=== PATIENT | female | born 1995 ===

== ENCOUNTER 2016-05-24 22:11 | Emergency (ER) | payer SELFPAY ==
[2016-05-24 22:25] VITALS: RESP 16
[2016-05-24] MEDS ORDERED: Lactated Ringer's 1,000 ML IV STA (22:44)
[2016-05-24 22:55] LABS: BASO # 0.1 K/uL (0.0-0.2); BASO % 0.4 % (0.0-2.0); EOS # 0.1 K/uL (0.0-0.7); HEMATOCRIT 38.8 % (34.0-47.0); LYMPH # 3.5 K/uL (1.0-4.3); LYMPH % 24.7 % (20.0-40.0); MEAN CELL VOLUME 83.1 fl (81.0-99.0); MEAN CORPUSCULAR HEMOGLOBIN 26.6 pg (27.0-31.0); MEAN PLATELET VOLUME 7.9 fl (7.2-11.7); MONO # 0.8 K/uL (0.0-0.8); MONO % 5.9 % (0.0-10.0); NEUT # 9.6 K/uL (1.8-7.0); RED CELL DISTRIBUTION WIDTH 13.5 % (11.5-14.5); WHITE BLOOD COUNT 14.2 K/uL (4.8-10.8)
[2016-05-24 23:15] LABS: ALB/GLOB RATIO 1.1 (1.0-2.1); ALKALINE PHOSPHATASE 86 U/L (38-126); ALT/SGPT 28 U/L (9-52); AST/SGOT 18 U/L (14-36); BILIRUBIN,TOTAL 0.6 mg/dl (0.2-1.3); BLOOD UREA NITROGEN 11 mg/dl (7-17); CALCIUM 9.6 mg/dL (8.4-10.2); CARBON DIOXIDE 21 mmol/L (22-30); CHLORIDE 106 mmol/L (98-107); GFR AFRICAN-AMERICAN > 60; GLUCOSE,RANDOM 99 mg/dL (65-105); POTASSIUM 3.8 MMOL/L (3.6-5.0); SODIUM 144 mmol/l (132-148); TOTAL PROTEIN 8.4 G/DL (6.3-8.2)
--- NOTE | 2016-05-25 00:32 | ED PDOC ---
HPI: Female Pain Time Seen by Provider: 05/24/16 22:36 Chief Complaint (Nursing): Female Genitourinary Chief Complaint (Provider): vaginal bleeding History Per: Patient Additional Complaint(s): Sudden onset vaginal bleeding 1pm today associated with pelvic cramping. LMP 2- 11 but reports that initial home preg test over a month ago was positive, but then after that it was negative. Has h/o irregular periods when on depo shot, but last 3 periods after she stopped in December were regular. Used less than one pad since onset. Severity of pain prompted ER visit. Past Medical History Reviewed: Historical Data, Nursing Documentation, Vital Signs Vital Signs: Last Vital Signs Temp 98.2 F 05/24/16 22:21 Pulse 87 05/24/16 22:21 Resp 16 05/24/16 22:21 BP 107/64 05/24/16 22:21 Pulse Ox 96 05/24/16 22:21 - Medical History PMH: Cardia Arrhythmia - Family History Family History: States: Unknown Family Hx - Home Medications Home Medications: Ambulatory Orders Medication Instructions Recorded Doxycycline Monohydrate 100 mg PO BID 14 Days 05/25/16 Naproxen 500 mg PO Q8 #30 tab 05/25/16 - Allergies Allergies/Adverse Reactions: Allergies Allergy/AdvReac Type Severity Reaction Status Date / Time metoclopramide HCl Allergy SHORTNESS Verified 05/24/16 22:20 [From Reglan] OF BREATH Physical Exam - Reviewed Nursing Documentation Reviewed: Yes Vital Signs Reviewed: Yes - Physical Exam Appears: Positive for: Well, Non-toxic Head Exam: Positive for: ATRAUMATIC, NORMOCEPHALIC Skin: Positive for: Warm, Dry Eye Exam: Positive for: EOMI, PERRL ENT: Negative for: Pharyngeal Erythema, Tonsillar Exudate Neck: Positive for: Painless ROM, Supple Cardiovascular/Chest: Positive for: Regular Rate, Rhythm. Negative for: Murmur Respiratory: Positive for: Normal Breath Sounds. Negative for: Wheezing Gastrointestinal/Abdominal: Positive for: Bowel Sounds, Soft, Tenderness ( suprapubic) Pelvic Exam: Positive for: No Cerv. Motion Tender, Active Bleeding, Blood, Tender Uterus, Other (cervic closed). Negative for: Tender Adnexa Extremity: Positive for: Normal ROM. Negative for: Pedal Edema Lymphatic: Negative for: Adenopathy Neurologic/Psych: Positive for: Alert. Negative for: Motor/Sensory Deficits - Laboratory Results Result Diagrams: 05/24/16 22:53 05/24/16 22:53 - ECG O2 Sat by Pulse Oximetry: 96 Disposition - Clinical Impression Clinical Impression: Vaginal bleeding - Disposition Disposition: Transfer of Care Disposition Time: 00:00 Condition: STABLE Prescriptions: Doxycycline Monohydrate 100 mg PO BID 14 Days Naproxen 500 mg PO Q8 #30 tab Print Language: BRUNEIAN Patient Signed Over To: David Alfaro Handoff Comments: Pending ER workup, reassessment and final ER disposition
--- NOTE | 2016-05-25 01:02 | US ---
EXAM: US Pelvis Complete, Transabdominal CLINICAL HISTORY: 20 years old, female; Pain; Pelvic pain; Additional info: Severe pelvic pain and bleeding R/O torsion TECHNIQUE: Real-time transabdominal pelvic ultrasound (complete) with image documentation. COMPARISON: Prior images are not available for review. FINDINGS: Limitation: Urinary bladder is almost empty which limits transabdominal imaging. Uterus: Uterus measures roughly 6.4 x 4.6 x 5 cm. Endometrium cannot be identified. Adnexa: Neither ovary was identified IMPRESSION: Limited transabdominal imaging due to the empty bladder, normal-sized uterus EXAM: US Pelvis, Transvaginal CLINICAL HISTORY: 20 years old, female; Pain; Pelvic pain; Additional info: Severe pelvic pain and bleeding R/O torsion TECHNIQUE: Real-time transvaginal pelvic ultrasound (complete) with image documentation. Transvaginal imaging was used for better evaluation of the endometrium and adnexa. EXAM DATE/TIME: 05/24/2016 10:45 PM COMPARISON: Prior images are not available for review. FINDINGS: Uterus: Endometrium measures approximately 3 mm in width. Right ovary: Right ovary measures approximately 3.9 x 1.4 x 2.4 cm. There are multiple small follicles. There is intraovarian blood flow. Left ovary measures approximately 4.1 x 1.8 x 2.4 cm. There are multiple small follicles. There is intraovarian blood flow. Fluid:There is no free fluid. Adnexa: There are no adnexal masses IMPRESSION: No torsion; normal endometrium
--- NOTE | 2016-05-25 01:34 | ED PDOC ---
- Laboratory Results Result Diagrams: 05/24/16 22:53 05/24/16 22:53 - ECG O2 Sat by Pulse Oximetry: 96 Pulse Ox Interpretation: Normal Medical Decision Making Medical Decision Making: Patient s/o from Dr. Rosario at 0000 pending US. 0101: US Pelvis impression: No torsion; normal endometrium. 0130: Patient is stable for d/c. Return precautions given. Scribe Attestation: Documented by Shilpi Schrader acting as a scribe for David Alfaro MD. Provider Scribe Attestation: All medical record entries made by the Scribe were at my direction and personally dictated by me. I have reviewed the chart and agree that the record accurately reflects my personal performance of the history, physical exam, medical decision making, and the department course for this patient. I have also personally directed, reviewed, and agree with the discharge instructions and disposition. Disposition - Clinical Impression Clinical Impression: Genitourinary Pain, Pelvic inflammatory disease (PID) - POA Present On Arrival: None - [facility]position [facility] Disposition: Routine/Home Disposition Time: 01:30 Condition: STABLE Prescriptions: Doxycycline Monohydrate 100 mg PO BID 14 Days Naproxen 500 mg PO Q8 #30 tab Instructions: Pelvic Inflammatory Disease (ED), Dysmenorrhea (ED) Print Language: SUDANESE
[2016-05-25] MEDS ORDERED: cefTRIAXone (Rocephin) 1 gm Inj ONE (01:38)
[2016-05-25 02:48] VITALS: BP 125/80; PULSE 75; TEMP 97.9
[2016-05-25 17:34] VITALS: O2SAT 96
== END 2016-05-25 02:57 | disposition home or self-care (01) ==
LOC: H.ER 22:11
DX: N93.9 Abnormal uterine and vaginal bleeding, unspecified (principal)

== ENCOUNTER 2016-07-28 09:09 | Emergency (ER) | payer SELFPAY ==
[2016-07-28 09:14] VITALS: TEMP 98
[2016-07-28 09:15] VITALS: BMI 21.9
--- NOTE | 2016-07-28 09:28 | ED PDOC ---
HPI: Female Pain Time Seen by Provider: 07/28/16 09:13 History Per: Patient Onset/Duration Of Symptoms: Days (2) Current Symptoms Are (Timing): Still Present Severity: Moderate Pain Scale Rating Of: 4 Quality Of Discomfort: Burning Associated Symptoms: denies: Fever, Nausea, Vomiting Additional Complaint(s): Dysuria, frequency and lower abd pain x 2 days. no fever vomiting or back pain. Abnormal Vaginal Bleeding: No Past Medical History Vital Signs: Last Vital Signs Temp 98 F 07/28/16 09:14 Pulse 99 H 07/28/16 09:14 Resp BP 124/74 07/28/16 09:14 Pulse Ox 99 07/28/16 09:14 - Medical History PMH: Cardia Arrhythmia - Family History Family History: States: Unknown Family Hx - Home Medications Home Medications: Ambulatory Orders Medication Instructions Recorded Doxycycline Monohydrate 100 mg PO BID 14 Days 05/25/16 Naproxen 500 mg PO Q8 #30 tab 05/25/16 Ciprofloxacin HCl [Cipro] 500 mg PO BID #20 tab 07/28/16 Naproxen [Naprosyn] 500 mg PO Q12H #20 tab 07/28/16 - Allergies Allergies/Adverse Reactions: Allergies Allergy/AdvReac Type Severity Reaction Status Date / Time metoclopramide HCl Allergy SHORTNESS Verified 07/28/16 09:18 [From Reglan] OF BREATH Review of Systems Constitutional: Negative for: Fever Gastrointestinal: Positive for: Abdominal Pain Genitourinary Female: Negative for: Dysuria, Frequency Musculoskeletal: Negative for: Back Pain Physical Exam - Physical Exam Appears: Positive for: Non-toxic, No Acute Distress Skin: Positive for: Normal Color, Warm, DRY Gastrointestinal/Abdominal: Positive for: Normal Exam, Bowel Sounds, Soft, Tenderness (suprapubic) Back: Negative for: L CVA Tenderness, R CVA Tenderness - ECG O2 Sat by Pulse Oximetry: 99 Disposition - Clinical Impression Clinical Impression: UTI (urinary tract infection) - Patient ED Disposition Is Patient to be Admitted: No Counseled Patient/Family Regarding: Studies Performed, Diagnosis, Need For Followup, Rx Given - Disposition Referrals: [facility] [Outside] Disposition: Routine/Home Disposition Time: 09:40 Condition: FAIR Prescriptions: Ciprofloxacin HCl [Cipro] 500 mg PO BID #20 tab Naproxen [Naprosyn] 500 mg PO Q12H #20 tab Instructions: Urinary Tract Infection in Women (ED)
[2016-07-28] MEDS ORDERED: Naproxen 500 MG TAB PO STA (09:49)
[2016-07-28 10:00] VITALS: BP 120/74; PULSE 90; RESP 18; O2SAT 98
== END 2016-07-28 10:00 | disposition home or self-care (01) ==
LOC: H.ER 09:09
DX: N39.0 Urinary tract infection, site not specified (principal); I49.9 Cardiac arrhythmia, unspecified

== ENCOUNTER 2016-10-12 15:48 | Observation (INO) | payer SELFPAY ==
[2016-10-12 15:48] VITALS: BMI 21.9
[2016-10-12 16:19] VITALS: BP 127/70; PULSE 78; RESP 18; TEMP 99; O2SAT 99
[2016-10-12] MEDS ORDERED: Sodium Chloride 0.9% 1,000 ML IV STA (16:44)
--- NOTE | 2016-10-12 16:44 | ED PDOC ---
HPI: Abdomen Time Seen by Provider: 10/12/16 16:17 Chief Complaint (Nursing): Abdominal Pain Chief Complaint (Provider): Abdominal Pain History Per: Patient History/Exam Limitations: no limitations Onset/Duration Of Symptoms: Days (x2 weeks) Current Symptoms Are (Timing): Still Present Location Of Pain/Discomfort: Suprapubic Associated Symptoms: Chills Additional Complaint(s): Bharati Tanner is a 20 year old female that presents to the ED with a chief complaint of a cramping suprapubic pain, nausea, and non-bloody vomiting that she has been experiencing for the past two weeks. Patient states that the pain feels is similar to the pain she feels during her menstrual cycle. She denies any urinary symptoms, congestion, chest pain, headache, or changes in diet. Patient reports that she has not taken any medication for her symptoms. Past Medical History Reviewed: Historical Data, Nursing Documentation, Vital Signs Vital Signs: Last Vital Signs Temp 99 F 10/12/16 16:11 Pulse 78 10/12/16 16:11 Resp 18 10/12/16 16:11 BP 127/70 10/12/16 16:11 Pulse Ox 99 10/12/16 18:32 - Medical History PMH: Cardia Arrhythmia - Surgical History Other surgeries: cardiac catheterization - Family History Family History: States: Unknown Family Hx - Home Medications Home Medications: Ambulatory Orders Medication Instructions Recorded Doxycycline Monohydrate 100 mg PO BID 14 Days 05/25/16 Naproxen 500 mg PO Q8 #30 tab 05/25/16 Ciprofloxacin HCl [Cipro] 500 mg PO BID #20 tab 07/28/16 Naproxen [Naprosyn] 500 mg PO Q12H #20 tab 07/28/16 - Allergies Allergies/Adverse Reactions: Allergies Allergy/AdvReac Type Severity Reaction Status Date / Time metoclopramide HCl Allergy SHORTNESS Verified 07/28/16 09:18 [From Reglan] OF BREATH Review of Systems Gastrointestinal: Positive for: Nausea, Vomiting (non-bloody), Abdominal Pain ( suprapubic pain, described as cramping) Genitourinary Female: Negative for: Dysuria, Frequency, Hematuria, Vaginal Bleeding Physical Exam - Reviewed Nursing Documentation Reviewed: Yes Vital Signs Reviewed: Yes - Physical Exam Appears: Positive for: Non-toxic, No Acute Distress Head Exam: Positive for: ATRAUMATIC, NORMOCEPHALIC Skin: Positive for: Normal Color, Warm Cardiovascular/Chest: Positive for: Regular Rate, Rhythm. Negative for: Murmur Respiratory: Positive for: Normal Breath Sounds. Negative for: Wheezing Gastrointestinal/Abdominal: Positive for: Soft, Tenderness (mild TTP suprapubic area. ). Negative for: Guarding, Rebound Back: Positive for: Normal Inspection. Negative for: L CVA Tenderness, R CVA Tenderness Neurologic/Psych: Positive for: Alert, Oriented. Negative for: Motor/Sensory Deficits - Laboratory Results Result Diagrams: 10/12/16 17:10 10/12/16 17:10 Interpretation Of Abn Labs: no acute - ECG O2 Sat by Pulse Oximetry: 99 (RA) Pulse Ox Interpretation: Normal - CT Scan/US US Other Rad Studies (CT/US): Read By Radiologist Other Rad Interpretation: SLIUP; ovarian cyst - Progress ED Course And Treament: 1853: Stable. AAOx3. Pain free. Tolerated PO. Fu with pcp. Medical Decision Making Medical Decision Making: Impression: Possible Plan: * CMP * CBC * ABO/RH * Type and Screen * Beta-HCG * Urine dip * Urine * NaCl 1000 mLs at 1000 mLs/hr * Zofran Inj 4 mg IV * US Ob * US Ob Transvaginal * Reevaluation 16:43 Patient's urine shows positive for , patient will be placed in ED Obs. Scribe Attestation: Documented by Tricia Mills, acting as a scribe for Benoit Casillas MD. Provider Scribe Attestation: All medical record entries made by the Scribe were at my direction and personally dictated by me. I have reviewed the chart and agree that the record accurately reflects my personal performance of the history, physical exam, medical decision making, and the department course for this patient. I have also personally directed, reviewed, and agree with the discharge instructions and disposition. ED OBSERVATION Discharge: Yes Date of observation admission: 10/12/16 Time of observation admission: 16:43 - Observation admission statement Patient is being placed in observation because:: extensive ED workup. - Goals of Observation Goals of observation are:: improvement of pain and resolution of symptoms. - Progress Note Progress Note: 10/12/16 16:43 Patient is stable, waiting US. 10/12/16 18:08 Patient is stable. US Transvaginal OB First Trimester Findings: The uterus measures approximately 8.7 x 6.1 x 5.6 cm. There is a single intrauterine fetus present. 5 mm yolk sac. The gestational sac measures 2.5 cm and is compatible with a gestational age of 7 weeks 1 day. The crown-rump length measures 0.8 cm and is compatible with a gestational age of 6 weeks 5 days. There is heart motion which measured 121 BPM. The right ovary measures 3.2 x 2.6 x 1.9 cm. The left ovary measures 3.3 x 2.0 x 1.8 cm. 1.2 cm left para ovarian cyst. Blood flow was demonstrated to both ovaries. Impression: Live single intrauterine with estimated gestational age 7 weeks 1 day by gestational sac calculation and 6 weeks 5 days by crown-rump length calculation. heart rate 121 bpm. Advise an anomaly screen at 16-18 weeks gestational age 1.2 cm left para ovarian cyst. Disposition - Clinical Impression Clinical Impression: Threatened - Patient ED Disposition Is Patient to be Admitted: No Counseled Patient/Family Regarding: Studies Performed, Diagnosis, Need For Followup - Disposition Disposition: Routine/Home Disposition Time: 18:54 Condition: STABLE
[2016-10-12 17:28] LABS: BASO # 0.1 K/uL (0.0-0.2); BASO % 0.6 % (0.0-2.0); EOS # 0.1 K/uL (0.0-0.7); EOS % 0.8 % (0.0-4.0); HEMATOCRIT 37.3 % (34.0-47.0); LYMPH # 2.3 K/uL (1.0-4.3); LYMPH % 19.3 % (20.0-40.0); MEAN CELL VOLUME 83.2 fl (81.0-99.0); MEAN CORPUSCULAR HEMOGLOBIN 26.8 pg (27.0-31.0); MEAN CORPUSCULAR HGB CONC 32.2 g/dL (33.0-37.0); MEAN PLATELET VOLUME 7.8 fl (7.2-11.7); MONO # 0.7 K/uL (0.0-0.8); MONO % 6.2 % (0.0-10.0); NEUT # 8.7 K/uL (1.8-7.0); NEUT % 73.1 % (50.0-75.0); RED CELL DISTRIBUTION WIDTH 13.6 % (11.5-14.5); WHITE BLOOD COUNT 11.9 K/uL (4.8-10.8)
[2016-10-12 17:38] LABS: ALB/GLOB RATIO 1.4 (1.0-2.1); ALKALINE PHOSPHATASE 61 U/L (38-126); ALT/SGPT 36 U/L (9-52); AST/SGOT 23 U/L (14-36); BILIRUBIN,TOTAL 0.9 mg/dl (0.2-1.3); BLOOD UREA NITROGEN 8 mg/dl (7-17); CALCIUM 9.9 mg/dL (8.4-10.2); CARBON DIOXIDE 21 mmol/L (22-30); CHLORIDE 104 mmol/L (98-107); GFR AFRICAN-AMERICAN > 60; GLUCOSE,RANDOM 84 mg/dL (65-105); POTASSIUM 4.2 MMOL/L (3.6-5.0); SODIUM 139 mmol/l (132-148); TOTAL PROTEIN 8.1 G/DL (6.3-8.2)
--- NOTE | 2016-10-12 18:15 | US ---
Indication: and pain Comparison: Submit transvaginal pelvic ultrasound performed 05/25/16 Technique: Ob 1st trimester transvaginal ultrasound Findings: The uterus measures approximately 8.7 x 6.1 x 5.6 cm. There is a single intrauterine fetus present. 5 mm yolk sac. The gestational sac measures 2.5 cm and is compatible with a gestational age of 7 weeks 1 day. The crown-rump length measures 0.8 cm and is compatible with a gestational age of 6 weeks 5 days. There is heart motion which measured 121 BPM. The right ovary measures 3.2 x 2.6 x 1.9 cm. The left ovary measures 3.3 x 2.0 x 1.8 cm. 1.2 cm left para ovarian cyst. Blood flow was demonstrated to both ovaries. Impression: Live single intrauterine with estimated gestational age 7 weeks 1 day by gestational sac calculation and 6 weeks 5 days by crown-rump length calculation. heart rate 121 bpm. Advise an anomaly screen at 16-18 weeks gestational age 1.2 cm left para ovarian cyst.
== END 2016-10-12 19:07 | disposition home or self-care (01) ==
LOC: H.ER 15:48 → H.EROBSV 16:43
PROVIDERS: ADMIT Emergency Medicine; ATTEND Emergency Medicine
DX: O20.0 Threatened abortion (principal); Z3A.01 Less than 8 weeks gestation of pregnancy; O34.81 Maternal care for other abnormalities of pelvic organs, first trimester; N83.209 Unspecified ovarian cyst, unspecified side; O21.9 Vomiting of pregnancy, unspecified
CPT/HCPCS: 36415; 76815; 76817; 80053; 81025; 84702; 85025; 86850; 86900; 99281; G0378; J2405; J7040

== ENCOUNTER 2016-10-20 20:50 | Emergency (ER) | payer SELFPAY ==
[2016-10-20 20:50] VITALS: BMI 21.9
[2016-10-20 20:59] VITALS: BP 115/57; PULSE 76; RESP 18; TEMP 98.6; O2SAT 99
[2016-10-20] MEDS ORDERED: Sodium Chloride 0.9% 1,000 ML IV STA (22:08)
--- NOTE | 2016-10-20 22:26 | ED PDOC ---
HPI: General Adult Time Seen by Provider: 10/20/16 21:09 Chief Complaint (Nursing): Abdominal Pain Chief Complaint (Provider): Medication Refill History Per: Patient History/Exam Limitations: no limitations Have you had recent travel within the past 21 days to any of the following countries: [place], [place], [place] or [place]?: No Additional Complaint(s): Bharati Tanner, a 20 year old female, who is currently 6 weeks presents to the ED for a medication refill. The patient states that she was prescribed zofran but has been out for the past 3 days and is now experiencing nausea and vomiting. The patient states that she also has been having abdominal cramping but it has been getting better. she reports that she was told that her abdominal cramps were normal. Patient is still waiting for an appointment with an OBGYN. Denies fever, chills, urinary symptoms. Past Medical History Reviewed: Historical Data, Nursing Documentation, Vital Signs Vital Signs: Last Vital Signs Temp 98.6 F 10/20/16 20:57 Pulse 76 10/20/16 20:57 Resp 18 10/20/16 20:57 BP 115/57 L 10/20/16 20:57 Pulse Ox 99 10/20/16 23:11 - Medical History PMH: Cardia Arrhythmia - Surgical History Surgical History: No Surg Hx - Family History Family History: States: Unknown Family Hx - Home Medications Home Medications: Ambulatory Orders Medication Instructions Recorded Doxycycline Monohydrate 100 mg PO BID 14 Days 05/25/16 Naproxen 500 mg PO Q8 #30 tab 05/25/16 Ciprofloxacin HCl [Cipro] 500 mg PO BID #20 tab 07/28/16 Naproxen [Naprosyn] 500 mg PO Q12H #20 tab 07/28/16 Ondansetron [Zofran] 4 mg PO Q8H PRN #6 tab 10/12/16 Doxylamine/Pyridoxine HCl (B6) 1 tcp PO BID #25 tcp 10/20/16 [Diclegis 10 mg-10 mg] - Allergies Allergies/Adverse Reactions: Allergies Allergy/AdvReac Type Severity Reaction Status Date / Time metoclopramide HCl Allergy SHORTNESS Verified 07/28/16 09:18 [From Reglan] OF BREATH paroxetine [From Paxil] Allergy RASH Verified 10/20/16 20:57 Review of Systems ROS Statement: Except As Marked, All Systems Reviewed And Found Negative Constitutional: Negative for: Fever, Chills Gastrointestinal: Positive for: Nausea, Vomiting Genitourinary Female: Negative for: Dysuria, Frequency, Incontinence, Hematuria Physical Exam - Reviewed Nursing Documentation Reviewed: Yes Vital Signs Reviewed: Yes - Physical Exam Appears: Positive for: Non-toxic, No Acute Distress Head Exam: Positive for: ATRAUMATIC, NORMAL INSPECTION, NORMOCEPHALIC Skin: Positive for: Normal Color, Warm, Dry. Negative for: Rash Eye Exam: Positive for: Normal appearance, EOMI, PERRL. Negative for: Nystagmus ENT: Positive for: Normal ENT Inspection. Negative for: Nasal Congestion, Tonsillar Exudate Neck: Positive for: Normal, Painless ROM, Supple Cardiovascular/Chest: Positive for: Regular Rate, Rhythm, Chest Non Tender. Negative for: Tachycardia Respiratory: Positive for: Normal Breath Sounds. Negative for: Rales, Rhonchi, Wheezing, Respiratory Distress Gastrointestinal/Abdominal: Positive for: Normal Exam, Bowel Sounds, Soft. Negative for: Tenderness, Guarding, Rebound Back: Positive for: Normal Inspection. Negative for: L CVA Tenderness, R CVA Tenderness Extremity: Positive for: Normal ROM. Negative for: Tenderness, Pedal Edema, Deformity, Swelling Neurologic/Psych: Positive for: Alert, Oriented, Gait - Laboratory Results Result Diagrams: 10/20/16 22:21 10/20/16 22:56 - ECG O2 Sat by Pulse Oximetry: 99 (RA) Pulse Ox Interpretation: Normal Medical Decision Making Medical Decision Makin Initial Impression: 20 year old female presenting with nausea in Initial Plan: * BMP * CBC * NS 1000mls IV 1000mls/hr * Tylenol 650mg PO * Zofran 4mg IVP * Zofran 4mg PO * Reevaluation Of note: recent work up and blood work which were negative Time: 2300 Upon provider reevaluation patient is feeling better, medically stable and requires no further treatment in the ED at this time. Patient will be discharged home with Rx for dicelgis. Counseling was provided and all questions were answered regarding diagnosis and need for follow up with [facility] [employer] [facility]. There is agreement to discharge plan. Return if symptoms persist or worsen. Clinical Impression: Scribe Attestation Documented by Shanell Beard acting as a scribe for David Alfaro MD. Provider Attestation All medical record entries made by the Scribe were at my direction and personally dictated by me. I have reviewed the chart and agree that the record accurately reflects my personal performance of the history, physical exam, medical decision making, and the department course for this patient. I have also personally directed, reviewed, and agree with the discharge instructions and disposition. Disposition - Clinical Impression Clinical Impression: Hyperemesis gravidarum - Disposition [facility] Disposition: Routine/Home Disposition Time: 23:00 Condition: IMPROVED Prescriptions: Doxylamine/Pyridoxine HCl (B6) [Diclegis 10 mg-10 mg] 1 tcp PO BID #25 tcp Instructions: Hyperemesis Gravidarum (ED) Forms: [facility] ([place]), [facility] ED School/Work Excuse Print Language: MALAWIAN
[2016-10-20 22:28] LABS: HEMATOCRIT 36.3 % (34.0-47.0); MEAN CELL VOLUME 82.5 fl (81.0-99.0); MEAN CORPUSCULAR HEMOGLOBIN 26.9 pg (27.0-31.0); MEAN CORPUSCULAR HGB CONC 32.6 g/dL (33.0-37.0); RED CELL DISTRIBUTION WIDTH 13.8 % (11.5-14.5); WHITE BLOOD COUNT 14.9 K/uL (4.8-10.8)
[2016-10-20 23:24] LABS: BLOOD UREA NITROGEN 8 mg/dl (7-17); CALCIUM 9.8 mg/dL (8.4-10.2); CARBON DIOXIDE 20 mmol/L (22-30); CHLORIDE 102 mmol/L (98-107); GFR AFRICAN-AMERICAN > 60; GLUCOSE,RANDOM 99 mg/dL (65-105); POTASSIUM 3.7 MMOL/L (3.6-5.0); SODIUM 136 mmol/l (132-148)
== END 2016-10-20 23:30 | disposition home or self-care (01) ==
LOC: H.ER 20:50
DX: O21.0 Mild hyperemesis gravidarum (principal); Z3A.01 Less than 8 weeks gestation of pregnancy
CPT/HCPCS: 80048; 85027; 96374; 99282; J2405

== ENCOUNTER 2017-01-10 14:51 | Emergency (ER) | payer SELFPAY ==
[2017-01-10 14:51] VITALS: BMI 21.9
[2017-01-10] MEDS ORDERED: Sodium Chloride 0.9% 1,000 ML IV STA (16:05)
--- NOTE | 2017-01-10 16:14 | ED PDOC ---
HPI: CCC, URI, Sore Throat Time Seen by Provider: 01/10/17 15:09 Chief Complaint (Nursing): Flu-like Symptoms Chief Complaint (Provider): Flu-like Symptoms History Per: Patient History/Exam Limitations: no limitations Onset/Duration Of Symptoms: Days (x 2) Current Symptoms Are (Timing): Still Present Additional Complaint(s): Bharati Tanner is a 21 year old female, at approximately 18 weeks gestation, who presents to the ED with 2 day history of runny nose, non- productive cough, sore throat, and lower abdominal pain with coughing. No vaginal bleeding. Patient also complaining of palpitations. She has a past medical history of cardiac ablation, and reports history of episodes of palpitations even before . PMD: [facility] Past Medical History Reviewed: Historical Data, Nursing Documentation, Vital Signs Vital Signs: Last Vital Signs Temp 97.9 F 01/10/17 15:01 Pulse 121 H 01/10/17 15:01 Resp 18 01/10/17 15:01 BP 111/72 01/10/17 15:01 Pulse Ox 99 01/10/17 18:24 - Medical History PMH: Cardia Arrhythmia - Surgical History Other surgeries: Cardiac ablation - Family History Family History: States: Unknown Family Hx - Home Medications Home Medications: Ambulatory Orders Medication Instructions Recorded Nitrofurantoin Macrocrystals 100 mg PO BID #13 cap 01/10/17 [Macrobid] - Allergies Allergies/Adverse Reactions: Allergies Allergy/AdvReac Type Severity Reaction Status Date / Time metoclopramide HCl Allergy SHORTNESS Verified 07/28/16 09:18 [From Reglan] OF BREATH paroxetine [From Paxil] Allergy RASH Verified 10/20/16 20:57 Review of Systems ROS Statement: Except As Marked, All Systems Reviewed And Found Negative ENT: Positive for: Nose Discharge (rhinorrhea), Throat Pain Cardiovascular: Positive for: Palpitations Respiratory: Positive for: Cough. Negative for: Sputum Gastrointestinal: Positive for: Abdominal Pain (with cough) Physical Exam - Reviewed Nursing Documentation Reviewed: Yes Vital Signs Reviewed: Yes - Physical Exam Appears: Positive for: Non-toxic, No Acute Distress Head Exam: Positive for: ATRAUMATIC, NORMAL INSPECTION, NORMOCEPHALIC Skin: Positive for: Normal Color, Warm, Dry Eye Exam: Positive for: EOMI, Normal appearance, PERRL ENT: Positive for: Normal ENT Inspection, Pharynx Is (clear), Nasal Congestion ( clear nasal discharge). Negative for: Pharyngeal Erythema, Tonsillar Exudate Neck: Positive for: Normal, Supple Cardiovascular/Chest: Positive for: Tachycardia (with regular rhythm) Respiratory: Positive for: Normal Breath Sounds. Negative for: Accessory Muscle Use, Wheezing, Respiratory Distress Gastrointestinal/Abdominal: Positive for: Soft, Tenderness (Mild suprapubic) Extremity: Positive for: Normal ROM. Negative for: Pedal Edema, Deformity Neurologic/Psych: Positive for: Alert, Oriented (x3), Other (Speaking full sentences). Negative for: Motor/Sensory Deficits - Laboratory Results Result Diagrams: 01/10/17 17:32 01/10/17 17:32 - ECG O2 Sat by Pulse Oximetry: 99 (RA) Pulse Ox Interpretation: Normal - CT Scan/US US Duplex Bilat Lower Extr Other Rad Studies (CT/US): Interpreted By Me Other Rad Interpretation: Negative for DVT Medical Decision Making Medical Decision Making: Spoke to patient and her step-father, regarding risks and benefits of CXR and pt is refusing CXR Time: 16:03 Initial Plan: --EKG --CMP --CBC w/ differential --PTT --Prothrombin time --Influenza A B --Rapid strep group --Urinalysis --Urine dipstick --NS IV 1000 ml at 1000 mls/hr --US Duplex Lower Extremity Bilateral to r/o DVT --US OB , Limited --Reevaluation Labs reviewed, negative for flu and strep. Time: 17:28 US OB : FINDINGS: UTERUS: Gestational sac: Single live intrauterine fetus in cephalic presentation. Heart rate: 146 bpm. BPD: 4.80 cm corresponding to 20 weeks and 4 days of gestational age. HC: 17.5 cm corresponding to 20 weeks and 1 day of gestational age. AC: 13.8 cm corresponding to 19 weeks and 2 days of gestational age. FL: 3.30 cm corresponding to 20 weeks and 2 days of gestational age. age (Ultrasound estimated): 20 weeks and 1 day Margarita-gestational hemorrhage: None. Date of delivery (Ultrasound estimated) : 05/29/2017 Placenta is posterior. CERVIX: Long and closed. No cervical abnormality seen. RIGHT OVARY: Not visualized. LEFT OVARY: Not visualized. FREE FLUID: None. OTHER FINDINGS: None. IMPRESSION: Single live intrauterine fetus in cephalic presentation with mean gestational age of 20 weeks and 1 day. The estimated date of delivery by ultrasound is . The ultrasound dates adding discrepancy with the clinical dates by more than 5 weeks. Clinical correlation and follow-up is advised. Please note this is a limited OB ultrasound done in the emergency room. Follow- up dedicated survey is advised. Time: 19:38 Urine is indicative of UTI. Patient is medically stable, and will be discharge home. Provided with rx for Macrobid and advised to take Tylenol for pain. Patient will follow up with PMD or [employer]. Scribe Attestation: Documented by Isabella Rodriguez, acting as a scribe for Tammy Alfred MD Provider Scribe Attestation: All medical record entries made by the Scribe were at my direction and personally dictated by me. I have reviewed the chart and agree that the record accurately reflects my personal performance of the history, physical exam, medical decision making, and the department course for this patient. I have also personally directed, reviewed, and agree with the discharge instructions and disposition. Disposition - Clinical Impression Clinical Impression: Palpitations, URI (upper respiratory infection), Abdominal pain in , UTI in - Patient ED Disposition Is Patient to be Admitted: No Counseled Patient/Family Regarding: Studies Performed, Diagnosis, Need For Followup, Rx Given - [facility]position [facility] Disposition: Routine/Home Disposition Time: 19:38 Condition: STABLE Additional Instructions: TYLENOL NEEDED FOR PAIN. Prescriptions: Nitrofurantoin Macrocrystals [Macrobid] 100 mg PO BID #13 cap Instructions: Palpitations (ED), Upper Respiratory Infection (ED), Abdominal Pain in (ED), Urinary Tract Infection in (ED) Forms: [employer] ([employer]) Print Language: SLOVAK
--- NOTE | 2017-01-10 17:30 | US ---
PROCEDURE: OB Pelvic Ultrasound HISTORY: Lower abd pain COMPARISON: None available. FINDINGS: UTERUS: Gestational sac: Single live intrauterine fetus in cephalic presentation. Heart rate: 146 bpm. BPD: 4.80 cm corresponding to 20 weeks and 4 days of gestational age. HC: 17.5 cm corresponding to 20 weeks and 1 day of gestational age. AC: 13.8 cm corresponding to 19 weeks and 2 days of gestational age. FL: 3.30 cm corresponding to 20 weeks and 2 days of gestational age. age (Ultrasound estimated): 20 weeks and 1 day Margarita-gestational hemorrhage: None. Date of delivery (Ultrasound estimated) : 05/29/2017 Placenta is posterior. CERVIX: Long and closed. No cervical abnormality seen. RIGHT OVARY: Not visualized. LEFT OVARY: Not visualized. FREE FLUID: None. OTHER FINDINGS: None. IMPRESSION: Single live intrauterine fetus in cephalic presentation with mean gestational age of 20 weeks and 1 day. The estimated date of delivery by ultrasound is 05/29/2017. The ultrasound dates adding discrepancy with the clinical dates by more than 5 weeks. Clinical correlation and follow-up is advised. Please note this is a limited OB ultrasound done in the emergency room. Follow-up dedicated survey is advised.
[2017-01-10 17:50] LABS: BASO # 0.1 K/uL (0.0-0.2); BASO % 0.6 % (0.0-2.0); EOS # 0.2 K/uL (0.0-0.7); EOS % 1.2 % (0.0-4.0); LYMPH # 1.6 K/uL (1.0-4.3); LYMPH % 10.9 % (20.0-40.0); MEAN CORPUSCULAR HGB CONC 32.2 g/dL (33.0-37.0); MEAN PLATELET VOLUME 8.1 fl (7.2-11.7); MONO # 0.6 K/uL (0.0-0.8); MONO % 4.2 % (0.0-10.0); NEUT # 11.8 K/uL (1.8-7.0); NEUT % 83.1 % (50.0-75.0); RED CELL DISTRIBUTION WIDTH 13.5 % (11.5-14.5); WHITE BLOOD COUNT 14.2 K/uL (4.8-10.8)
[2017-01-10 18:01] LABS: ALB/GLOB RATIO 1.1 (1.0-2.1); ALKALINE PHOSPHATASE 76 U/L (38-126); ALT/SGPT 55 U/L (9-52); AST/SGOT 39 U/L (14-36); BILIRUBIN,TOTAL 0.4 mg/dl (0.2-1.3); BLOOD UREA NITROGEN 6 mg/dl (7-17); CALCIUM 9.1 mg/dL (8.4-10.2); CARBON DIOXIDE 20 mmol/L (22-30); CHLORIDE 108 mmol/L (98-107); GFR AFRICAN-AMERICAN > 60; GLUCOSE,RANDOM 100 mg/dL (65-105); POTASSIUM 3.7 MMOL/L (3.6-5.0); SODIUM 138 mmol/l (132-148); TOTAL PROTEIN 7.1 G/DL (6.3-8.2)
[2017-01-10 18:03] LABS: PARTIAL THROMBOPLASTIN TIME 26.2 Seconds (25.6-37.1)
[2017-01-10 19:28] LABS: RBC URINE 7 /hpf (0-3); URINE BACTERIA OCC (<OCC); URINE BILIRUBIN NEGATIVE (NEGATIVE); URINE BLOOD NEGATIVE (NEGATIVE); URINE COLOR YELLOW (YELLOW); URINE GLUCOSE (UA) NEG (Normal); URINE KETONE NEGATIVE (NEGATIVE); URINE LEUKOCYTE ESTERASE TRACE Leu/uL (Negative); URINE PROTEIN NEGATIVE (NEGATIVE); URINE UROBILINOGEN 0.2-1.0 mg/dL (0.2-1.0); WBC URINE 3 /hpf (0-5)
[2017-01-10 20:22] VITALS: BP 110/70; PULSE 86; RESP 16; TEMP 98.2; O2SAT 98
--- NOTE | 2017-01-10 23:43 | US ---
EXAM: US Duplex Bilateral Lower Extremity Veins CLINICAL HISTORY: 21 years old, female; Pain; Leg, lower; Bilateral; Additional info: Palpitations TECHNIQUE: Real-time ultrasound scan of the veins of the bilateral lower extremities with color Doppler flow, spectral waveform analysis and compression. COMPARISON: No relevant prior studies available. FINDINGS: Right deep veins: Unremarkable. No DVT in the right common femoral, femoral, proximal deep femoral or popliteal veins. The veins demonstrate normal color flow, are normally compressible, with normal phasic flow and/or augmentation response. Right superficial veins: Unremarkable. No thrombus in the visualized right great saphenous vein. Left deep veins: Unremarkable. No DVT in the left common femoral, femoral, proximal deep femoral or popliteal veins. The veins demonstrate normal color flow, are normally compressible, with normal phasic flow and/or augmentation response. Left superficial veins: Unremarkable. No thrombus in the visualized left great saphenous vein. Soft tissues: No acute findings. No popliteal cyst. IMPRESSION: Normal bilateral lower extremity duplex venous ultrasound.
--- NOTE | 2017-01-11 10:36 | CARD ---
APPROVED REPORT EKG Measurement Heart [id number] 120P79 [id number] <Conclusion> Normal sinus rhythm Normal ECG
--- NOTE | 2017-01-11 10:38 | CARD ---
APPROVED REPORT EKG Measurement Heart [id number] SD 112P78 [id number] <Conclusion> Sinus tachycardia Otherwise normal ECG
== END 2017-01-10 20:22 | disposition home or self-care (01) ==
LOC: H.ER 14:51
DX: R00.2 Palpitations (principal); O23.42 Unspecified infection of urinary tract in pregnancy, second trimester; O26.90 Pregnancy related conditions, unspecified, unspecified trimester; R10.2 Pelvic and perineal pain; Z3A.20 20 weeks gestation of pregnancy; O99.512 Diseases of the respiratory system complicating pregnancy, second trimester
CPT/HCPCS: 76815; 80053; 81003; 85025; 85610; 85730; 87070; 87430; 87804; 93005; 93970; 99283; J7040

== ENCOUNTER 2017-11-07 15:49 | Emergency (ER) | payer OTHER, SELFPAY ==
[2017-11-07 15:50] VITALS: BMI 21.9
--- NOTE | 2017-11-07 17:20 | ED PDOC ---
Upper Extremity Pain/Injury Chief Complaint (Provider): Right Shoulder Pain History Per: Patient History/Exam Limitations: no limitations Onset/Duration Of Symptoms: Days Current Symptoms Are (Timing): Still Present Quality: "Pain" Additional Complaint(s): 22 year old female presents to the ER for an evaluation of right shoulder pain onset for 2 days. She states the pain is worse with movement and she has not taken any medication for relief. Patient also reports she has trouble sleeping and has a mild headache of which she has a history of and she states this headache is similar to the ones in the past. Denies any injury or trauma. PMD: Unknown <Evelin Tejeda - Last Filed: 11/07/17 19:47> <Benoit Casillas - Last Filed: 11/09/17 14:46> Time Seen by Provider: 11/07/17 16:16 Chief Complaint (Nursing): Upper Extremity Problem/Injury Past Medical History Reviewed: Historical Data, Nursing Documentation, Vital Signs Vital Signs: Last Vital Signs Temp 98.6 F 11/07/17 15:56 Pulse 76 11/07/17 15:56 Resp 16 11/07/17 15:56 BP 111/70 11/07/17 15:56 Pulse Ox 99 11/07/17 15:56 - Medical History PMH: Cardia Arrhythmia - Family History Family History: States: Unknown Family Hx - Social History Current smoker - smoking cessation education provided: No Alcohol: None Drugs: Denies <Evelin Tejeda S - Last Filed: 11/07/17 19:47> Vital Signs: Last Vital Signs Temp 98 F 11/07/17 18:25 Pulse 87 11/07/17 18:25 Resp 18 11/07/17 18:25 BP 122/80 11/07/17 18:25 Pulse Ox 99 11/07/17 19:48 <Benoit Casillas - Last Filed: 11/09/17 14:46> - Home Medications Home Medications: Ambulatory Orders Medication Instructions Recorded Nitrofurantoin Macrocrystals 100 mg PO BID #13 cap 01/10/17 [Macrobid] RX: Ibuprofen [Motrin Tab] 600 mg PO Q8 #12 tab 11/07/17 - Allergies Allergies/Adverse Reactions: Allergies Allergy/AdvReac Type Severity Reaction Status Date / Time metoclopramide HCl Allergy SHORTNESS Verified 07/28/16 09:18 [From Reglan] OF BREATH paroxetine [From Paxil] Allergy RASH Verified 10/20/16 20:57 Penicillins Allergy ANAPHYLAXIS Verified 11/07/17 15:56 Review of Systems ROS Statement: Except As Marked, All Systems Reviewed And Found Negative Constitutional: Negative for: Fever, Other (trauma) Musculoskeletal: Positive for: Shoulder Pain (right) Neurological: Positive for: Headache (mild) Psych: Negative for: Suicidal ideation (homicidal ideation) <Evelin Tejeda - Last Filed: 11/07/17 19:47> Physical Exam - Reviewed Nursing Documentation Reviewed: Yes Vital Signs Reviewed: Yes - Physical Exam Appears: Positive for: Well, Non-toxic, No Acute Distress Head Exam: Positive for: ATRAUMATIC, NORMAL INSPECTION, NORMOCEPHALIC Skin: Positive for: Normal Color, Warm, Dry. Negative for: Rash Eye Exam: Positive for: Normal appearance Extremity: Positive for: Normal ROM, Tenderness (mild tenderness over anterior right shoulder, made worse with ROM. FROM of shoulder. Elbow and wrist nontender with full painless ROM). Negative for: Deformity Neurologic/Psych: Positive for: Alert, Oriented (x3). Negative for: Motor/Sensory Deficits <Evelin Tejeda S - Last Filed: 11/07/17 19:47> - ECG O2 Sat by Pulse Oximetry: 99 (RA) Pulse Ox Interpretation: Normal <Evelin Tejeda - Last Filed: 11/07/17 19:47> Medical Decision Making Medical Decision Making: Time: 1651 --Urine --Motrin 600mg --Shoulder Right [RAD] XR of right shoulder presents no fracture, dislocation, as read by NO. Scribe Attestation: Documented by Adrian Kaye, acting as a scribe for Evelin S Tejeda, PA-C. Provider Scribe Attestation: All medical record entries made by the Scribe were at my direction and personally dictated by me. I have reviewed the chart and agree that the record accurately reflects my personal performance of the history, physical exam, medical decision making, and the department course for this patient. I have also personally directed, reviewed, and agree with the discharge instructions and disposition. <Evelin Tejeda - Last Filed: 11/07/17 19:47> Disposition - Patient ED Disposition Is Patient to be Admitted: No - Disposition Disposition: Routine/Home Disposition Time: 18:19 <Evelin Tejeda - Last Filed: 11/07/17 19:47> <Benoit Casillas - Last Filed: 11/09/17 14:46> - Clinical Impression Clinical Impression: Shoulder pain, Headache - Disposition Referrals: [facility] [Outside] Condition: IMPROVED Prescriptions: RX: Ibuprofen [Motrin Tab] 600 mg PO Q8 #12 tab Instructions: Headache, Adult, Shoulder Pain (DC) Forms: [employer] (Liberian), [facility] ED School/Work Excuse Addendum Addendum: 11/09/17 14:46 Reviewed Pa chart and agree. <Benoit Casillas - Last Filed: 11/09/17 14:46>
[2017-11-07 18:27] VITALS: BP 122/80; PULSE 87; RESP 18; TEMP 98
[2017-11-07 19:49] VITALS: O2SAT 99
--- NOTE | 2017-11-08 11:49 | RAD ---
Date of service: 11/07/2017 PROCEDURE: Radiographs of the Right Shoulder HISTORY: pain COMPARISON: No prior. FINDINGS: BONES: No acute fracture or destructive bony lesion identified. JOINTS: Glenohumeral and acromioclavicular joints preserved. No osteoarthritis. SOFT TISSUES: Normal. OTHER FINDINGS: None. IMPRESSION: Normal radiographs of the right shoulder.
== END 2017-11-07 18:25 | disposition home or self-care (01) ==
LOC: H.ER 15:49
DX: R51 Headache (principal); M25.511 Pain in right shoulder; Z88.0 Allergy status to penicillin

== ENCOUNTER 2017-12-20 13:11 | Emergency (ER) | payer OTHER ==
[2017-12-20 13:11] VITALS: BMI 21.9
[2017-12-20 13:21] VITALS: RESP 16; TEMP 98.3; O2SAT 100
--- NOTE | 2017-12-20 13:25 | ED PDOC ---
HPI: Chest Pain Time Seen by Provider: 12/20/17 13:22 Chief Complaint (Nursing): Chest Pain Chief Complaint (Provider): chest pain History Per: Patient, Family (Patient's at bedside is translating for patient in malawian) Additional Complaint(s): 32-year-old female presents with chest pain, palpitations and shortness of breath started 4 AM today. Patient has history of cardiac ablation for tachycardia that was done 3 years ago in [facility]. Patient's states she is not currently under the care of a transplant nurse practitioner. She states she woke up at 4 AM with chest pain and felt palpitations and out of breath. She arrives to ED today with her . Patient denies any cough, congestion, fever or chills. No dizziness or headache. Patient's denies recent travel. PMD: none Past Medical History Reviewed: Historical Data, Nursing Documentation, Vital Signs Vital Signs: Last Vital Signs Temp 98.3 F 12/20/17 13:16 Pulse 84 12/20/17 13:16 Resp 16 12/20/17 13:16 BP 119/79 12/20/17 13:16 Pulse Ox 100 12/20/17 13:16 - Medical History PMH: Cardia Arrhythmia - Surgical History Other surgeries: cardiac ablation for tachycardia - Family History Family History: States: Unknown Family Hx - Living Arrangements Living Arrangements: With Family - Social History Current smoker - smoking cessation education provided: No Alcohol: None Drugs: Denies - Home Medications Home Medications: Ambulatory Orders Medication Instructions Recorded Nitrofurantoin Macrocrystals 100 mg PO BID #13 cap 01/10/17 [Macrobid] Ibuprofen [Motrin Tab] 600 mg PO Q8 #12 tab 11/07/17 Ibuprofen [Motrin] 600 mg PO Q6 PRN #20 tab 12/20/17 - Allergies Allergies/Adverse Reactions: Allergies Allergy/AdvReac Type Severity Reaction Status Date / Time metoclopramide HCl Allergy SHORTNESS Verified 12/20/17 13:16 [From Reglan] OF BREATH paroxetine [From Paxil] Allergy RASH Verified 12/20/17 13:16 Penicillins Allergy ANAPHYLAXIS Verified 12/20/17 13:16 SUDHEER Risk Score for UA/NSTEMI - SUDHEER Risk Score Age > 64: NO 3 or more CAD Risk Factors: NO Known CAD (Stenosis greater than 50%): NO Aspirin use in past 7 days: NO Severe Angina: NO EKG ST changes greater than 0.5mm: NO Positive Cardiac Marker: NO SUDHEER Score: 0 Risk %: 5% Curb-65 Severity Score - CURB-65 Severity Score Confusion: No Bun >19mg/dl (>7mmol/L): No Respiratory Rate greater than/equal to 30: No Systolic BP <90 or Diastolic BP less than/equal 60mmHg: No Age >64: No Curb-65 Score: 0 Percentage 30-day mortality: 0.6% Wells Criteria for PE - Wells Criteria for Pulmonary Embolism Clinical Signs and Symptoms of DVT: No P.E is #1 Diagnosis, or Equally Likely: No Heart Rate >100: No Immobilization at least 3 days;Surgery previous 4 weeks: No Previous, objectively diagnosed PE or DVT: No Hemoptysis: No Malignancy w/treatment within 6 months, or palliative: No Total Score: 0 Review of Systems ROS Statement: Except As Marked, All Systems Reviewed And Found Negative Constitutional: Negative for: Fever, Chills, Weakness Cardiovascular: Positive for: Chest Pain, Palpitations. Negative for: Edema, Light Headedness Respiratory: Positive for: Shortness of Breath. Negative for: Cough, Hemoptysis, SOB with Exertion, Pleuritic Pain, Sputum, Wheezing Gastrointestinal: Negative for: Nausea, Vomiting Neurological: Negative for: Headache, Dizziness Physical Exam - Reviewed Nursing Documentation Reviewed: Yes Vital Signs Reviewed: Yes - Physical Exam Appears: Positive for: Well, Non-toxic, No Acute Distress Skin: Positive for: Normal Color. Negative for: Rash Eye Exam: Positive for: Normal appearance Cardiovascular/Chest: Positive for: Regular Rate, Rhythm Respiratory: Positive for: Normal Breath Sounds Extremity: Positive for: Normal ROM Neurologic/Psych: Positive for: Alert, Oriented - Laboratory Results Result Diagrams: 12/20/17 14:02 12/20/17 14:02 - ECG Interpretation Of ECG: Sinus rhythm 75 bpm with short OH, reviewed by PA and ED attending. O2 Sat by Pulse Oximetry: 100 Pulse Ox Interpretation: Normal - Other Rad CXR X-Ray: Interpreted by Me, Viewed By Me X-Ray Interpretation: no acute finding Medical Decision Making Medical Decision Makin22 y/o with chest pain, sob and palpitations Plan: EKG CXR CBC CMP Troponin IVF PO ASA Upon reevaluation patient states she feels better, chest pain and palpitations have resolved. Patient is aware of all diagnostic testing results. Repeat vitals are stable. Patient given prescription for Motrin and was referred to clinic for follow-up. Disposition - Clinical Impression Clinical Impression: Chest wall pain - Patient ED Disposition Is Patient to be Admitted: No Counseled Patient/Family Regarding: Studies Performed, Diagnosis, Need For Followup, Rx Given - Disposition Referrals: [facility] [Outside] Disposition: Routine/Home Disposition Time: 15:16 Condition: STABLE Additional Instructions: Take prescription meds as directed as needed for pain. Follow-up with clinic or return any time if acutely worse. Prescriptions: Ibuprofen [Motrin] 600 mg PO Q6 PRN #20 tab PRN Reason: Pain, Moderate (4-7) Instructions: Costochondritis Forms: [employer] (Maori) Print Language: CYMRAES Results - Lab Results Lab Results: 12/20/17 12/20/17 12/20/17 14:02 14:02 14:02 WBC 8.2 RBC 4.64 Hgb 12.6 D Hct 39.0 MCV 84.2 MCH 27.3 MCHC 32.4 L RDW 13.7 Plt Count 339 MPV 8.0 Neut % (Auto) 62.2 Lymph % (Auto) 30.2 [place] % (Auto) 6.0 Eos % (Auto) 1.2 Baso % (Auto) 0.4 Neut # (Auto) 5.1 Lymph # (Auto) 2.5 [place] # (Auto) 0.5 Eos # (Auto) 0.1 Baso # (Auto) 0.0 D-Dimer, Quantitative < 200 Sodium 140 Potassium 4.1 Chloride 107 Carbon Dioxide 23 Anion Gap 14 BUN 12 Creatinine 0.5 L Est GFR ( Amer) > 60 Est GFR (Non-Af Amer) > 60 Random Glucose 87 Calcium 9.7 Total Bilirubin 0.9 AST 23 ALT 24 Alkaline Phosphatase 69 Troponin I < 0.0120 Total Protein 8.5 H Albumin 4.6 Globulin 3.8 Albumin/Globulin Ratio 1.2
[2017-12-20] MEDS ORDERED: Sodium Chloride 0.9% 1,000 ML IV STA (13:32)
[2017-12-20 14:15] LABS: BASO % 0.4 % (0.0-2.0); EOS # 0.1 K/uL (0.0-0.7); EOS % 1.2 % (0.0-4.0); HEMOGLOBIN 12.6 g/dL (12.0-16.0); LYMPH # 2.5 K/uL (1.0-4.3); LYMPH % 30.2 % (20.0-40.0); MEAN CELL VOLUME 84.2 fl (81.0-99.0); MEAN CORPUSCULAR HEMOGLOBIN 27.3 pg (27.0-31.0); MEAN CORPUSCULAR HGB CONC 32.4 g/dL (33.0-37.0); MONO # 0.5 K/uL (0.0-0.8); NEUT # 5.1 K/uL (1.8-7.0); NEUT % 62.2 % (50.0-75.0); RBC 4.64 Mil/uL (3.80-5.20); RED CELL DISTRIBUTION WIDTH 13.7 % (11.5-14.5); WHITE BLOOD COUNT 8.2 K/uL (4.8-10.8)
[2017-12-20 14:20] LABS: ALB/GLOB RATIO 1.2 (1.0-2.1); ALBUMIN 4.6 g/dL (3.5-5.0); ALT/SGPT 24 U/L (9-52); AST/SGOT 23 U/L (14-36); BLOOD UREA NITROGEN 12 mg/dl (7-17); CALCIUM 9.7 mg/dL (8.4-10.2); GFR NON-AFRICAN AMERICAN > 60
--- NOTE | 2017-12-20 14:56 | RAD ---
HISTORY: clearance COMPARISON: Chest x-ray performed 03/02/16 TECHNIQUE: Chest, one view. FINDINGS: LUNGS: No focal consolidation. Please note that chest x-ray has limited sensitivity for the detection of pulmonary masses. PLEURA: No significant pleural effusion identified. No definite pneumothorax . CARDIOVASCULAR: Heart size appears within normal limits. No significant atherosclerotic calcification present. OSSEOUS STRUCTURES: No acute osseous abnormality identified. VISUALIZED UPPER ABDOMEN: Unremarkable. OTHER FINDINGS: None. IMPRESSION: No focal consolidation, significant pleural effusion, or definite pneumothorax identified.
[2017-12-20 15:33] VITALS: BP 108/66; PULSE 77
== END 2017-12-20 15:35 | disposition home or self-care (01) ==
LOC: H.ER 13:11
DX: R07.89 Other chest pain (principal); Z88.0 Allergy status to penicillin
CPT/HCPCS: 71045; 80053; 81025; 84484; 85025; 85378; 96360; 99283; J7030